=== PATIENT | female | born 1980 | race Caucasian/White ===

== ENCOUNTER 2018-02-06 21:00 | Emergency (ER) | payer OTHER ==
[~2018-02-06] VITALS: Ht 165.1 cm; Wt 49.9 kg
--- NOTE | 2018-02-06 21:40 | NUR ---
PT TO ER BED 6. [employer] C/O SI TEXTED EARLY "GOODBYE ON MY LAST DYING BREATH". TOOK XANAX X 1 TODAY AND ETOH+. DENIES SI/HI AT THIS TIME. PT PLACED ON ROAD CONDUCTOR. VSS/RESP EVEN UNLABORED/NAD NOTED/SKIN WARM AND DRY/AFEBRILE/DENIES N-V-D/AOX4. AWAITNG MD LOPEZ.
--- NOTE | 2018-02-06 21:47 | NUR ---
LAB AT BEDSIDE FOR DRAW.
--- NOTE | 2018-02-06 21:57 | NUR ---
URINE SPECIMEN OBTAINEED AND SENT TO THE LAB.
[2018-02-06 21:58] LABS: BASOPHILS % (AUTO) 0.4 % (0.0-2.0); EOSINOPHILS % (AUTO) 0.8 % (0.0-6.0); HEMATOCRIT 45 % (33-45); LYMPHOCYTES # (AUTO) 1.3 /CMM (0.8-4.8); LYMPHOCYTES % (AUTO) 28.3 % (20.0-44.0); MEAN CORPUSCULAR HEMOGLOBIN 32 PG (26.0-33.0); MEAN CORPUSCULAR HGB CONC 34 g/dl (31.0-36.0); MEAN CORPUSCULAR VOLUME 94 fL (82-100); MONOCYTES # (AUTO) 0.3 /CMM (0.1-1.30); MONOCYTES % (AUTO) 6.4 % (2.0-12.0); NEUTROPHILS % (AUTO) 64.1 % (43.0-81.0); PLATELET COUNT (AUTO) 228 /CMM (150-450); RDW COEFFICIENT OF VARIATION 11.9 (11.5-15.0); RED BLOOD CELL COUNT(AUTO) 4.75 MIL/uL (4.0-5.2); WHITE BLOOD COUNT (AUTO) 4.6 K/uL (4.3-11.0)
[2018-02-06 22:09] LABS: APPEARANCE,URINE SL CLOUDY (CLEAR); BILIRUBIN,URINE NEGATIVE (NEGATIVE); BLOOD, URINE NEGATIVE Ery/uL (NEGATIVE); COLOR,URINE YELLOW (YELLOW); KETONES,URINE NEGATIVE (NEGATIVE); LEUKOCYTE ESTERASE ,URINE TRACE (NEGATIVE); NITRITE, URINE NEGATIVE (NEGATIVE); PROTEIN,URINE NEGATIVE (NEGATIVE); UGLUCOSE NEGATIVE (NEGATIVE); UROBILINOGEN,URINE 0.2 EU/dL (0.2)
[2018-02-06 22:09] LABS: CALCIUM, SERUM 9.2 mg/dL (8.5-10.1); POTASSIUM 4.2 mmol/L (3.5-5.1)
[2018-02-06 22:14] LABS: ALBUMIN 4.8 g/dL (3.4-5.0); BILIRUBIN,DIRECT 0.1 mg/dL (0.0-0.2); BILIRUBIN,TOTAL 0.4 mg/dL (0.2-1.0); TOTAL PROTEIN, SERUM 8.4 g/dL (6.4-8.2)
[2018-02-06 22:15] LABS: SALICYLATE 2.1 mg/dL (2.8-20.0)
[2018-02-06 22:24] LABS: BACTERIA,URINE Many /HPF (None Seen); RBC,URINE 0-2 /HPF (0-2); SQUAMOUS EPITHELIAL CELL,UR Moderate /HPF (None Seen)
--- NOTE | 2018-02-06 23:05 | NUR ---
Patient discharged with to home in stable condition. Written and verbal after care instructions given. Patient verbalizes understanding of instruction. Patient is awake and alert to self, day, and place. Patient ambulatory with a steady gait.
[2018-02-06 23:06] VITALS: BP 124/71
== END 2018-02-06 23:07 | disposition home or self-care (01) ==
LOC: ER 21:02
DX: F10.129 Alcohol abuse with intoxication, unspecified (principal); F17.200 Nicotine dependence, unspecified, uncomplicated; Y90.4 Blood alcohol level of 80-99 mg/100 ml
CPT/HCPCS: 36415; 80048; 80076; 80305; 80329; 81001; 85025; 87077; 87086; 87186; 99284; A4606; G0480 ×2; Z7610; 81000-TC